=== PATIENT | male | born 1935 | race Caucasian/White ===

== ENCOUNTER 2019-09-12 22:35 | Emergency (ER) | payer MEDICARE, SELFPAY ==
[2019-09-12 22:36] VITALS: BP 172/92; PULSE 77; RESP 15; TEMP 36.4; O2SAT 97; BMI 31.1
--- NOTE | 2019-09-12 22:51 | ED.VIS.GEN ---
History of Present Illness Chief Complaint: Lower Extremity Injury Narrative: Patient presents with 2 to 3-week history of calf pain and right lower extremity swelling. He has no chest pain or shortness of breath he is on warfarin and his last INR 2 days ago was 2.1. He denies any fevers or chills he has not noticed any redness in his leg. He has no knee pain ankle pain and no history of trauma. Past Medical History - Allergies and Home Meds Allergies/Adverse Reactions: Allergies No Known Allergies Allergy (Verified 09/12/19 22:39) Primary Care Physician: Nubia Patrick,Out of [Primary Care Provider] - Past Medical History: - - Reviewed with the patient, granddaughter, his medications are at bedside which I reviewed. He has a history hypertension, hypercholesterolemia, heart disease status post bypass surgery Smoking Status: Never smoker Review of Systems All systems negative except as indicated General: Denies: Fever Cardiovascular: Denies: Chest pain Respiratory: Denies: Dyspnea, Cough Gastrointestinal: Denies: Abdominal pain Musculoskeletal: Reports: - - Leg pain as in HPI Skin: Denies: Rash, Abscess, Wounds Neurological: Denies: Weakness, Parasthesia Hematologic: Denies: Easy bruising, Easy bleeding Physical Exam Vital Signs/Narrative: Vital Signs Temp Pulse Resp BP Pulse Ox 09/12/19 22:36 97.5 F L 77 15 172/92 H 97 General: Well nourished, Well developed Head: Normocephalic ENT: Moist mucous membranes Neck: Supple Cardiovascular: Regular rate, Regular rhythm Respiratory: No distress, CTA bilaterally Abdomen: Soft, Nontender Back: Nontender, Normal Inspection Extremities: - - There is mild right lower extremity edema which is asymmetric. He has some calf tenderness and some tenderness in the popliteal region. He has normal pulses. There is no erythema or Callard or any signs of cellulitis. No crepitus. Skin: Normal color, No rash Neurological: Alert, Oriented x3 Psychological: Normal affect Diagnostic/Tx/Re-eval - Medical Decision Making Patient is found to have a large cyst in the back of the knee, this was somewhat irregular so I did a CAT scan which showed significant vascular disease but there is no obvious full stenosis. It also showed an incidental mass in the bladder presumably from the prostate. Patient is from [place] and is going back in 3 days therefore I told him he needs to follow-up with both a vascular surgeon and a urologist, he tells me he has a urologist and will follow-up I told him specifically that the worry is that he has cancer. He understands this. Otherwise he will be discharged in stable condition. He does not require analgesia. ED Disposition - Plan for ED Patient: Disposition: Non-Skill ID/Intermediate Care Diagnosis: Bakers cyst, Bladder mass, Peripheral vascular disease Instructions: ED Cyst Em, ED PVD Referrals: [facility] Doctor,Out of [Primary Care Provider] - Additional Instructions: There is a mass in your bladder, follow-up with your urologist in [place] to make sure this is not cancer. Take 5 mg of Coumadin for the next 4 days after which have your INR checked when you get back to [place]. Stop taking metformin for the next 3 days since she has had IV contrast.
--- NOTE | 2019-09-12 22:55 | US_ITS ---
STUDY: VENOUS DOPPLER ULTRASOUND - RIGHT LOWER EXTREMITY REASON FOR EXAM: Male, 83 years old. RT LEG SWELLING -X 2 WEEKS PAIN WHEN WALKING TECHNIQUE: Ultrasound evaluation of the deep vein system to include juan-scale imaging and compression was performed. Juan-scale imaging and Doppler sonographic evaluation, including duplex spectral analysis and qualitative color flow sonography, was performed. COMPARISON: None. FINDINGS: Common Femoral Vein: Normal compression, spontaneity and augmentation. Normal color Doppler. Common Femoral Vein/Greater Saphenous Junction: Normal compression, spontaneity and augmentation. Normal color Doppler. Deep Femoral Vein: Normal compression, spontaneity and augmentation. Normal color Doppler. Femoral Proximal: Normal compression, spontaneity and augmentation. Normal color Doppler. Femoral Middle: Normal compression, spontaneity and augmentation. Normal color Doppler. Femoral Distal: Normal compression, spontaneity and augmentation. Normal color Doppler. Popliteal Vein: Normal compression, spontaneity and augmentation. Normal color Doppler. Posterior Tibial Vein: Normal compression, spontaneity and augmentation. Normal color Doppler. Peroneal Vein: Normal compression, spontaneity and augmentation. Normal color Doppler. A large 7.8 x 3.0 cm avascular debris filled cyst in the posterior aspect of the upper calf is present which is suspected to represent a Em''s cyst. Subcutaneous edema is present in the lower calf and ankle region. The left common femoral vein was evaluated and is normal. US/Venous Duplex Imag/Limited/Uni IMPRESSION: 1. No demonstrated deep venous thrombosis of the right lower extremity. 2. A large 7.8 x 3.0 cm avascular debris filled cyst in the posterior aspect of the upper calf is present which is suspected to represent a Em''s cyst. Subcutaneous edema is present in the lower calf and ankle region. Electronically Signed: Jf Chadwick MD at 23:44 EDT , Service support ,
[2019-09-12 23:57] LABS: Absolute Lymphocyte Count 0.99 X10^3/uL (0.83-4.51); Absolute Neutrophil Count 4.5 X10^3/uL (2.0-7.7); Basophil# 0.05 X10^3/uL; Basophil% 0.7 % (0-1); Eosinophil# 0.28 X10^3/uL; Eosinophils% 4.2 % (0-5); Hematocrit 42.7 % (40-54); Hemoglobin 14.1 g/dL (13.0-16.5); Lymphocyte # 0.99 X10^3/ul (4.0); Lymphocyte % 14.8 % (19-41); Mean Corpuscular Hgb 31.1 pg (27.0-32.0); Mean Corpuscular Volume 94.1 fL (80-94); Mean Platelet Vol. 9.4 fl (6.2-12.0); Monocyte# 0.81 X10^3/uL; Monocyte% 12.1 % (0-10); NRBC Flagged by Analyzer 0 % (0-5); Neutrophil % 67.3 % (47-70); Platelet Count 227 K/mm3 (150-450); RBC Distribution Width CV 12.9 % (11.6-14.6); RBC Distribution Width SD 44.2 fl (35.1-43.9); Red Blood Count 4.54 M/mm3 (4.6-6.2); White Blood Count 6.7 K/mm3 (4.4-11.0)
[2019-09-13 00:01] LABS: International Normalized Ratio 1.9; Prothrombin Time (Protime)PT. 20.9 SECONDS (11.7-14.9)
--- NOTE | 2019-09-13 00:05 | CT_ITS ---
ACR Level 3 findings have been noted. An addendum which confirms receipt of the report will follow. STUDY: CT RIGHT HIP WITHOUT CONTRAST REASON FOR EXAM: Male, 83 years old patient with right lower extremity pain and swelling. RADIATION DOSAGE (If Supplied By Facility): CTDIvol = ( 16.18 ) mGy, DLP = ( 1721.14 ) mGycm TECHNIQUE: Transaxial CT imaging of the hip was performed. Sagittal and coronal images were reconstructed. The reformations are less than optimal with jagged contours to the reformation images. Individualized dose optimization techniques were used for this CT. COMPARISON: Prior comparison studies are not available for review at this time. FINDINGS: There is vacuum disc phenomenon at L5-S1 consistent with degenerative disc disease. Normal visualized femur. Normal visualized soft tissue structure. There are atherosclerotic vascular calcifications. There are osteoarthritic changes of the femoral head with marginal osteophyte formation. Normal acetabulum. Normal hip joint. Normal visualized superior and inferior pubic rami and ischial tuberosities. Normal urinary bladder. Normal visualized small intestine. Normal visualized colon. There is no pelvic fluid. The prostate is enlarged with a polypoid lesion extending into the urinary bladder base. The masslike process within the urinary bladder measures 4.3 x 3.5 x 4.4 cm in size. There is enlargement of the prostate gland. There is diffuse atherosclerotic calcification of the pelvic arteries with elongation and tortuosity. Normal abdominal wall. IMPRESSION: 1. Degenerative arthropathy of the right hip. 2. 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 3. Degenerative disc disease L5-S1. Electronically Signed: Indu Clark MD at 1:31 EDT , Service support , STUDY: CT RIGHT FEMUR WITH CONTRAST REASON FOR EXAM: Male, 83 years old patient with right lower extremity pain and edema. Abnormal ultrasound. RADIATION DOSAGE (If Supplied By Facility): CTDIvol = ( 16.2 ) mGy, DLP = ( 1721.1 ) mGycm TECHNIQUE: Transaxial CT imaging of the femur was performed post contrast administration. The examination was performed with intravenous administration of 98 mL of Isovue-370. Sagittal and coronal images were reconstructed. The reformations are less than optimal with jagged contour suggesting source imaging was not used for the reformations. Individualized dose optimization techniques were used for this CT. COMPARISON: Prior comparison studies are not available for review at this time. FINDINGS: Normal visualized femur. There is extensive vascular calcifications of the femoral artery with hemodynamically significant stenosis of up to 50% diameter narrowing within the proximal femoral artery. There is minimal enhancement on these images. There is no demonstrated fracture or destructive process. There is minimal contrast enhancement on the study. The visualized skeletal muscles are within normal limits. IMPRESSION: A technically limited study of the right femur with atherosclerotic peripheral vascular disease with possible hemodynamically significant stenosis. Electronically Signed: Indu Clark MD at 1:37 EDT , Service support , STUDY: CT RIGHT KNEE WITH CONTRAST REASON FOR EXAM: Male, 83 years old patient with right lower extremity pain and edema. Abnormal ultrasound. RADIATION DOSAGE (If Supplied By Facility): CTDIvol = ( 16.2 ) mGy, DLP = ( 1721.1 ) mGycm TECHNIQUE: Transaxial CT imaging of the knee was performed post contrast administration. The examination was performed with intravenous administration of 98 mL of Isovue 370. The reformations are technically limited having jagged contours suggesting source imaging was not used. Individualized dose optimization techniques were used for this CT. COMPARISON: Duplex venous ultrasound dated 09/12/2019. FINDINGS: Normal medial femoral condyle and medial tibial plateau. There is preservation of the articular joint space of the medial knee compartment. Normal lateral femoral condyle and lateral tibial plateau. There is preservation of the articular joint space of the lateral knee compartment. Normal proximal tibiofibular articulation. There is a small suprapatellar effusion. There is minimal enhancement evident on these images. There is atherosclerotic calcification of the popliteal artery. There may be a stricture of the popliteal vein. There is no demonstrated fracture. The quadriceps tendon is grossly normal. The patellar tendon is grossly normal. Normal Hoffa''s fat pad. The visualized skeletal muscles are within normal limits. No loculated collections are visualized. There is superficial soft tissue edema surrounding the knee particularly medially. IMPRESSION: 1. Joint effusion. 2. Apparent stricture of the popliteal vein. 3. Technically limited study secondary to limited enhancement and technically limited reformations. 4. No loculated collections are visible Electronically Signed: Indu Clark MD at 1:44 EDT , Service support , STUDY: CT RIGHT TIBIA AND FIBULA WITH CONTRAST REASON FOR EXAM: Male, 83 years old patient with right lower extremity pain and edema. Abnormal ultrasound. RADIATION DOSAGE (If Supplied By Facility): CTDIvol = ( 16.2 ) mGy, DLP = ( 1721.1 ) mGycm TECHNIQUE: Transaxial CT imaging of the tibia and fibula was performed post contrast administration. The examination was performed with intravenous administration of 98 mL of Isovue-370. Sagittal and coronal images were reconstructed. The reformations are technically limited with jagged contour suggesting source imaging was not used for the reformations. Individualized dose optimization techniques were used for this CT. COMPARISON: None. FINDINGS: Normal visualized tibia and fibula. There are vascular calcifications throughout the calf. Images of the skeletal muscles are within normal limits. There is minimal enhancement identified on these images. IMPRESSION: 1. No radiographic evidence for fracture. 2. Extensive peripheral vascular atherosclerotic disease. 3. Technically limited reformations and minimal enhancement is evident. Electronically Signed: Indu Clark MD at 1:49 EDT , Service support , STUDY: CT RIGHT ANKLE WITH CONTRAST REASON FOR EXAM: Male, 83 years old patient with right lower extremity pain and swelling. History of abnormal ultrasound. RADIATION DOSAGE (If Supplied By Facility): CTDIvol = ( 16.2 ) mGy, DLP = ( 1721.1 ) mGycm TECHNIQUE: Transaxial CT imaging of the ankle was performed post contrast administration. The examination was performed with intravenous administration of 98 mL of Isovue-370.. Sagittal and coronal images were reconstructed. Reformations are technically limited with jagged contour suggesting source images were not use. Individualized dose optimization techniques were used for this CT. COMPARISON: Prior comparison studies are not available for review at this time. FINDINGS: Normal visualized distal tibia and fibula. Normal tibiotalar articulation and talar dome. Normal talus, calcaneus, navicular and cuboid tarsal bones. Normal subtalar, talonavicular and calcaneocuboid articulations. The soft tissue structures are grossly normal. There is minimal enhancement evident on these images. Basilar calcifications are visible. The visualized Achilles tendon appears to be intact. CT/Extremity Lower WITH Contrast IMPRESSION: 1. Extensive peripheral vascular disease. 2. Technically limited reformations. 3. No obvious fracture is visualized. Electronically Signed: Indu Clark MD at 1:53 EDT , Service support ,
[2019-09-13 00:18] LABS: ALB/GLOB Ratio 0.9 RATIO (0.9-2.4); AST(SGOT) 19 U/L (15-37); Alanine Aminotransfer ALT/SGPT 20 U/L (16-61); Albumin, Serum 3.7 g/dL (3.2-5.0); Alkaline Phosphatase 138 U/L (45-117); Anion Gap 7 (5-15); BUN 31 mg/dL (7-18); BUN/Creat Ratio 27.2 RATIO (10-20); Calcium,Total 8.9 mg/dL (8.5-10.1); Chloride 103 mmol/L (98-107); Creatinine, Serum 1.14 mg/dL (0.70-1.30); EST Glomerular Filtration Rate 65 mL/min (>60); Est Glom Filt Rate - Afr Amer 78 mL/min (>60); Estimated Creatinine Clearance 45.83 ml/min; Globulin 4.2 g/dL (2.2-4.2); Glucose 100 mg/dL (74-106); Potassium 3.5 mmol/L (3.5-5.1); Protein, Total 7.9 g/dL (6.4-8.2); Sodium Level 138 mmol/L (136-145)
[2019-09-13 02:37] VITALS: BP 174/75; PULSE 80; RESP 16
== END 2019-09-13 02:42 | disposition intermediate care facility (04) ==
PROVIDERS: Emergency Provider Emergency Medicine
DX: M71.20 Synovial cyst of popliteal space [Baker], unspecified knee (principal); N32.9 Bladder disorder, unspecified; I73.9 Peripheral vascular disease, unspecified; I10 Essential (primary) hypertension; E78.00 Pure hypercholesterolemia, unspecified; R60.0 Localized edema
CPT/HCPCS: 73701; 80053; 85025; 85610; 93971; 99283; Q9967; A4216